=== PATIENT | male | born 1980 | race Caucasian/White ===

== ENCOUNTER → 2016-06-19 | Outpatient (REF) | payer BC ==
[2016-06-26 14:13] LABS: PROTEIN C ANTIGEN 75 % (60-150); SJOGREN'S ANTI SS-A <0.2 AI (0.0-0.9); SJOGREN'S ANTI SS-B <0.2 AI (0.0-0.9)
== END ==
LOC: M LABNEURO 09:58
PROVIDERS: ATTEND Psychiatry & Neurology Neurology
DX: Z51.81 Encounter for therapeutic drug level monitoring (principal); Z79.899 Other long term (current) drug therapy